=== PATIENT | male | born 1980 | race Caucasian/White ===

== ENCOUNTER 2019-07-22 22:30 | Emergency (ER) | payer SELFPAY ==
[2019-07-22] MEDS ORDERED: Ketorolac Tromethamine 30 MG/ML VIAL ONE (22:46)
== END 2019-07-22 23:05 | disposition home or self-care (01) ==
LOC: ERS 22:30
DX: M25.511 Pain in right shoulder (principal); E11.9 Type 2 diabetes mellitus without complications; I10 Essential (primary) hypertension; E66.9 Obesity, unspecified; F41.9 Anxiety disorder, unspecified; F32.9 Major depressive disorder, single episode, unspecified; F17.210 Nicotine dependence, cigarettes, uncomplicated; Z79.84 Long term (current) use of oral hypoglycemic drugs; Z79.899 Other long term (current) drug therapy
CPT/HCPCS: 96372; 99283; J1885

== ENCOUNTER 2019-08-13 10:02 | Emergency (ER) | payer SELFPAY ==
--- NOTE | 2019-08-13 11:28 | RAD ---
RIGHT SHOULDER THREE VIEWS: HISTORY: Shoulder pain. FINDINGS: There are arthritic changes of the glenohumeral joint space. There is some minimal spur formation geri ng the humeral head and what may be some small subchondral cysts involving the glenoid. The AC joint appears unremarkable. IMPRESSION: Arthritic change of the glenohumeral joint space. No acute process. POS: [facility]
[2019-08-13] MEDS ORDERED: Ketorolac Tromethamine 30 MG/ML VIAL ONE (11:29)
== END 2019-08-13 11:53 | disposition home or self-care (01) ==
LOC: ERS 10:02
DX: M25.511 Pain in right shoulder (principal); F41.9 Anxiety disorder, unspecified; F32.9 Major depressive disorder, single episode, unspecified; F17.210 Nicotine dependence, cigarettes, uncomplicated; Z79.84 Long term (current) use of oral hypoglycemic drugs; Z79.899 Other long term (current) drug therapy
CPT/HCPCS: 96372; J1885

== ENCOUNTER 2020-01-17 07:06 | Emergency (ER) | payer SELFPAY ==
--- NOTE | 2020-01-17 07:55 | RAD ---
EXAM: Single view of the chest HISTORY: Chest pain COMPARISON: 07/26/2011 FINDINGS: Single view of the chest shows a normal sized cardiomediastinal silhouette. There is no david dence of consolidation, mass, or pleural effusion. The bones are unremarkable. IMPRESSION: No evidence of acute cardiopulmonary disease
== END 2020-01-17 08:59 | disposition home or self-care (01) ==
LOC: ERS 07:06
DX: S20.212A Contusion of left front wall of thorax, initial encounter (principal); K21.9 Gastro-esophageal reflux disease without esophagitis; E11.9 Type 2 diabetes mellitus without complications; I10 Essential (primary) hypertension; E66.9 Obesity, unspecified; F41.9 Anxiety disorder, unspecified; F32.9 Major depressive disorder, single episode, unspecified; F17.210 Nicotine dependence, cigarettes, uncomplicated; Z79.84 Long term (current) use of oral hypoglycemic drugs; Z79.899 Other long term (current) drug therapy; W18.30XA Fall on same level, unspecified, initial encounter
CPT/HCPCS: 71045; 93005

== ENCOUNTER 2020-02-23 18:03 | Emergency (ER) | payer OTHER, SELFPAY ==
[~2020-02-23 18:03] MED LIST: Iopamidol-370 76% 500 ML 1 ML ONE
[2020-02-23 18:54] LABS: #Eosinphils 0.1 thou/uL (0.0-0.7); #Monocytes 0.2 thou/uL (0.11-0.59); #Neutrophils 1.8 thou/uL (1.40-6.50); %Basophils 0.1 % (0.0-1.0); %Eosinophils 2.4 % (0.0-10.0); %Lymphocytes 32.1 % (21.0-51.0); %Monocytes 7.6 % (0.0-10.0); %Neutrophils 57.9 % (42.0-75.0); Hemoglobin 14.2 g/dL (14.0-18.0); Mean Corpuscular HGB CONC 34.7 g/dL (32.0-36.0); Mean Corpuscular Volume 89.5 fL (78.0-98.0); Mean Platelet Volume 9.5 fL (7.4-10.4); RBC Distribution Width 12.2 % (11.5-14.5); Red Blood Cell (RBC) Count 4.58 mill/uL (4.70-6.10); White Blood Cell (WBC) Count 3.1 thou/uL (4.8-10.8)
[2020-02-23 18:56] LABS: ALT (SGPT) 172 U/L (8-55); AST (SGOT) 161 U/L (5-34); Alkaline Phosphatase 72 U/L (40-110); Anion Gap 17 mmol/L (10-20); BUN (Urea Nitrogen) 9 mg/dL (8.9-20.6); Bilirubin, Total 0.3 mg/dL (0.2-1.2); Calc. Creatinine Clearance 0 mL/min (70-130); Carbon Dioxide 23 mmol/L (22-29); Chloride 101 mmol/L (98-107); Estimated GFR-MDRD Greater than 90; Globulin 3.7 g/dL (2.4-3.5); Glucose 214 mg/dL (70-105); Lipase 50 U/L (8-78); Potassium 4.5 mmol/L (3.5-5.1); Protein, Total 7.7 g/dL (6.0-8.3); Sodium 136 mmol/L (136-145)
[2020-02-23 19:19] LABS: Platelet Count 68 thou/uL (130-400); Platelet Morphology Comment Appears Decreased; RBC Morphology Normal
--- NOTE | 2020-02-23 19:27 | CT ---
CT ABDOMEN AND PELVIS WITH IV CONTRAST: 02/23/20 HISTORY: Increasing periumbilical hernia and abdominal pain. Low grade fever of 100.3 over the past couple of days. FINDINGS: Chronic changes in the left hilar/infrahilar region and left lower lobe are stable since the CT pulde nary angiogram of 07/26/11. There is irregularity of the surface of the liver consistent with cirrhosis. The spleen is enlarged m easuring 17.6 cm in length. No portal splenic thrombosis is seen. The splenic vein is prominent. The pancreas, adrenal glands, and kidneys are normal. No free air, free fluid or lymphadenopathy is s een in the abdomen or pelvis. The small bowel loops are not abnormally dilated. A normal appearing ap pendix is noted. There is colonic diverticulosis. A fat containing right paraumbilical hernia is seen with inflammatory changes within the fat. The nec k of the hernia measures 3 cm. IMPRESSION: 1. Cirrhosis of the liver. 2. Splenomegaly. 3. Colonic diverticulosis. 4. Fat containing right periumbilical hernia with inflammatory changes. An infective process can not be excluded. POS: OFF
[2020-02-24 14:07] LABS: SARS-CoV-2 MS2 Positive; SARS-CoV-2 N Gene Negative; SARS-CoV-2 S Gene Negative; SARS-CoV-2 by NAA Not Detected (NotDetected); SARS-CoV-2 orf1ab Negative
== END 2020-02-23 20:08 | disposition home or self-care (01) ==
LOC: ERS 18:03
DX: K42.9 Umbilical hernia without obstruction or gangrene (principal); K74.60 Unspecified cirrhosis of liver; E66.9 Obesity, unspecified; D72.819 Decreased white blood cell count, unspecified; D69.6 Thrombocytopenia, unspecified; K21.9 Gastro-esophageal reflux disease without esophagitis; E11.9 Type 2 diabetes mellitus without complications; I10 Essential (primary) hypertension; F41.9 Anxiety disorder, unspecified; F32.9 Major depressive disorder, single episode, unspecified; F17.210 Nicotine dependence, cigarettes, uncomplicated; Z79.84 Long term (current) use of oral hypoglycemic drugs; Z79.899 Other long term (current) drug therapy; Z20.828 Contact with and (suspected) exposure to other viral communicable diseases
CPT/HCPCS: 36415; 74177; 80053; 83605; 83690; 85025; 87635; Q9967; U0003

== ENCOUNTER 2020-07-07 21:54 | Emergency (ER) | payer OTHER, SELFPAY ==
--- NOTE | 2020-07-07 22:31 | RAD ---
EXAM: CHEST ONE VIEW HISTORY: Lightheadedness. Heart is racing. Chest pressure for one hour. COMPARISON: 01/17/[address] abdomen on 02/23/2020 FINDINGS: The cardiac silhouette and pulmonary vasculature are within normal limits. Stable areas of linear sca rring are again seen at the lateral left lung base including stable pleural and parenchymal scarring left lung base. Lungs are otherwise clear. No consolidation is seen. No other interval peng e. IMPRESSION: 1. No acute cardiopulmonary process. 2. Stable chronic changes left lung base.
[2020-07-07 23:21] LABS: #Eosinphils 0.1 thou/uL (0.0-0.7); #Lymphocytes 1.1 thou/uL (1.20-3.40); #Monocytes 0.3 thou/uL (0.11-0.59); #Neutrophils 2.5 thou/uL (1.40-6.50); %Basophils 0.6 % (0.0-1.0); %Lymphocytes 26.6 % (21.0-51.0); %Neutrophils 62.8 % (42.0-75.0); ALT (SGPT) 113 U/L (8-55); AST (SGOT) 90 U/L (5-34); Albumin 4.2 g/dL (3.5-5.0); Alkaline Phosphatase 61 U/L (40-110); Anion Gap 17 mmol/L (10-20); BUN (Urea Nitrogen) 18 mg/dL (8.9-20.6); Bilirubin, Total 0.7 mg/dL (0.2-1.2); Calc. Creatinine Clearance 0 mL/min (70-130); Calcium 9.1 mg/dL (7.8-10.44); Carbon Dioxide 26 mmol/L (22-29); Chloride 97 mmol/L (98-107); Globulin 3.3 g/dL (2.4-3.5); Glucose 175 mg/dL (70-105); Hemoglobin 13.4 g/dL (14.0-18.0); Lipase 250 U/L (8-78); Mean Corpuscular HGB CONC 32.6 g/dL (32.0-36.0); Mean Corpuscular Hemoglobin 28.5 pg (27.0-31.0); Mean Corpuscular Volume 87.6 fL (78.0-98.0); Mean Platelet Volume 8.8 fL (7.4-10.4); Platelet Count 76 thou/uL (130-400); Platelet Morphology Comment Appears Decreased; Protein, Total 7.5 g/dL (6.0-8.3); Red Blood Cell (RBC) Count 4.68 mill/uL (4.70-6.10); Sodium 136 mmol/L (136-145)
== END 2020-07-07 23:35 | disposition home or self-care (01) ==
LOC: ERS 21:54
DX: R00.2 Palpitations (principal); R07.89 Other chest pain; R42 Dizziness and giddiness; K21.9 Gastro-esophageal reflux disease without esophagitis; E11.9 Type 2 diabetes mellitus without complications; I10 Essential (primary) hypertension; E66.9 Obesity, unspecified; Z79.84 Long term (current) use of oral hypoglycemic drugs; Z79.899 Other long term (current) drug therapy
CPT/HCPCS: 36415; 71045; 80053; 83690; 83880; 84484; 85025; 93005; 94760

== ENCOUNTER 2021-12-09 11:00 | Emergency (ER) | payer OTHER ==
[2021-12-09] MEDS ORDERED: Dexameth. Sod Phosp. 10 MG/ML (CHEMO USE ONLY) ONE (12:53)
[2021-12-09] MEDS ORDERED: Ketorolac Tromethamine 30 MG/ML VIAL ONE (12:53)
== END 2021-12-09 13:07 | disposition home or self-care (01) ==
LOC: ERS 11:00
DX: M25.512 Pain in left shoulder (principal); M25.511 Pain in right shoulder; M19.90 Unspecified osteoarthritis, unspecified site; K21.9 Gastro-esophageal reflux disease without esophagitis; I10 Essential (primary) hypertension; E11.9 Type 2 diabetes mellitus without complications; F17.210 Nicotine dependence, cigarettes, uncomplicated; E66.9 Obesity, unspecified; X50.0XXA Overexertion from strenuous movement or load, initial encounter; Z68.45 Body mass index [BMI] 70 or greater, adult; Z79.84 Long term (current) use of oral hypoglycemic drugs; Z79.899 Other long term (current) drug therapy
CPT/HCPCS: 96372; 99283; J1100; J1885